=== PATIENT | female | born 1990 | race Caucasian/White ===

== ENCOUNTER 2017-07-29 04:53 | Emergency (ER) | payer MEDICAID ==
[2017-07-29 05:02] VITALS: O2SAT 96
--- NOTE | 2017-07-29 05:08 | EDPHY ---
H & P Stated Complaint: COUGH X 2 WKS, SOB TONIGHT HPI/ROS: HPI CHIEF COMPLAINT: Cough, shortness of breath HISTORY OF PRESENT ILLNESS: This patient is a 26-year-old female she has a history of lupus, Bechet's Disease, additionally migraine headache she presents emergency room with 2 weeks of cough initially nonproductive and rather nagging. She states tonight she started coughing worse with productive of sputum with white clear sputum. At time she thinks over the past 2 weeks she has had some blood in her sputum. Denies any fever. Does endorse pain when she coughs in her chest. No vomiting. Denies taking control. No history of PE or DVT. No history of cardiac disease. Came to the emergency room as her cough got worse this evening. 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 She states she was coughing rather throughout the 24 hr however got worse when she tried to lay down and take a rest tonight. Due to the worsening cough shortness of breath she decided come the emergency room. She denies any significant chest pain except when she coughs. Denies any abnormal leg swelling or leg pain or calf tenderness. Denies pleuritic pain. Past Medical History: Lupus, Migraines, Bechet's Disease Past Surgical History: Denies recent surgery Social History: [employer] student, denies drugs alcohol tobacco. Family History: Noncontributory ROS REVIEW OF SYSTEMS: A comprehensive 10 point review of systems is otherwise negative aside from elements mentioned in the history of present illness. Exam Constitutional appears well nontoxic triage nursing summary reviewed, vital signs reviewed, awake/alert. Eyes normal conjunctivae and sclera, EOMI, PERRLA. HENT normal inspection, atraumatic, moist mucus membranes, no epistaxis, neck supple/ no meningismus, no raccoon eyes. Respiratory bronchitic sounding cough on exam, decreased air movement bilaterally, slight wheezing bilaterally Cardiovascular rate normal, regular rhythm, no murmur, no edema, distal pulses normal. Gastrointestinal soft, non-tender, no rebound, no guarding, normal bowel sounds, no distension, no pulsatile mass. Genitourinary no CVA tenderness. Musculoskeletal no midline vertebral tenderness, full range of motion, no calf swelling, no tenderness of extremities, no meningismus, good pulses, neurovascularly intact. Skin pink, warm, & dry, no rash, skin atraumatic. Neurologic awake, alert and oriented x 3, AAOx3, moves all 4 extremities equally, motor intact, sensory intact, CN II-XII intact, normal cerebellar, normal vision, normal speech. Psychiatric normal mood/affect. Heme/Lymph/Immune no lymphadenopathy. Differential Diagnosis: Includes but is not limited to in a particular order bronchitis, pneumonia, reactive airway disease, viral syndrome, upper respiratory tract infection, pulmonary embolism, pneumothorax, CHF Medical Decision Making: Plan for this patient IV established with IV fluid bolus, IV Solu-Medrol for bronchitic sounding cough, wheezing, chest x-ray, DuoNeb breathing treatment, check basic blood work including D-dimer and re- evaluate. Re-evaluation: EKG interpretation by me on record in [employer] system. Impression time of EKG 5:22 a.m., sinus rhythm rate of 98 no acute ischemic change appreciated. No signs of cardiac arrhythmia. ED x-ray chest one view: Negative for acute cardiopulmonary disease. 0606: D-dimer is negative. 0635: Re-evaluation the patient is resting comfortably feels much better after 1st DuoNeb breathing treatment. She is requesting a 2nd DuoNeb breathing treatment. Chest x-ray does not show any significant abnormality specifically no focal pneumonia no pneumothorax. Blood work is reviewed negative D-dimer. Electrolytes appropriate. Good kidney function. Clinically this patient is having acute bronchitis. Vital signs have been reviewed she is stable. No hypoxia no fever. She is requesting 2nd DuoNeb breathing treatment Which I will provide for her. For home I will provide a albuterol inhaler, azithromycin, prednisone. Recommend she drink lots of fluids. Recommend return emergency room she develops worsening shortness of breath or pain. Source: Patient - Personal History LMP (Females 10-55): 8-14 Days Ago Current Tetanus/Diphtheria Vaccine: Yes Tetanus Vaccine Date: 2014 - Medical/Surgical History Hx Asthma: No Hx Chronic Respiratory Disease: No Hx Diabetes: No Hx Cardiac Disease: Yes Hx Renal Disease: No Hx Cirrhosis: No Hx Alcoholism: No Hx HIV/AIDS: No Hx Splenectomy or Spleen Trauma: No Other PMH: Lupus. Bradycardia. [employer] INFLAMATION, - Social History Smoking Status: Never smoked Constitutional: Initial Vital Signs Temperature (C) 36.7 C 07/29/17 04:57 Heart Rate 98 02/11/18 04:57 Respiratory Rate 20 07/29/17 04:57 Blood Pressure 120/78 07/29/17 04:57 O2 Sat (%) 96 07/29/17 04:57 O2 Delivery Mode Room Air Allergies/Adverse Reactions: metoclopramide HCl [From Reglan] Allergy (Verified 07/29/17 04:55) morphine Allergy (Verified 07/29/17 04:55) mor Allergy (Uncoded 07/02/15 16:37) Home Medications: Medication Instructions Recorded Plaquenil 200 mg (RX) 12/27/15 Wellbutrin Sr 12/27/15 AZITHROMYCIN [Z-PACK] 250 mg PO DAILY #6 tab 07/29/17 Albuterol [Proventil Inhaler HFA 1 - 2 puffs IH Q4H #1 mdi 07/29/17 (*)] Topamax 07/29/17 guaiFENesin [Guaifenesin ER] 600 mg PO BID #14 tab.er.12h 07/29/17 predniSONE 60 mg PO DAILY #15 tab 07/29/17 riTUXimab 07/29/17 Medical Decision Making - Data Points Laboratory Results: Laboratory Results 07/29/17 05:32 07/29/17 05:32 07/29/17 07/29/17 07/29/17 05:41 05:32 05:32 WBC RBC Hgb POC Hgb 13.6 gm/dL gm/dL (12.6-16.3) Hct POC Hct 40 % % (38-47) MCV MCH MCHC RDW Plt Count MPV Neut % (Auto) Lymph % (Auto) [place] % (Auto) Eos % (Auto) Baso % (Auto) Nucleat RBC Rel Count Absolute Neuts (auto) Absolute Lymphs (auto) Absolute Monos (auto) Absolute Eos (auto) Absolute Basos (auto) Absolute Nucleated RBC Immature Gran % Immature Gran # D-Dimer POC Sodium 141 mEq/L mEq/L (135-145) Sodium 140 mEq/L mEq/L (135-145) POC Potassium 3.7 mEq/L mEq/L (3.3-5.0) Potassium 3.9 mEq/L mEq/L (3.5-5.2) POC Chloride 108 mEq/L mEq/L (97-110) Chloride 105 mEq/L mEq/L (97-110) Carbon Dioxide 22 mEq/l mEq/l (22-31) Anion Gap 13 mEq/L mEq/L (8-16) POC BUN 8 mg/dL mg/dL (7-23) BUN 10 mg/dL mg/dL (7-23) Creatinine 0.8 mg/dL mg/dL (0.6-1.0) POC Creatinine 0.9 mg/dL mg/dL (0.6-1.0) Estimated GFR > 60 Glucose 92 mg/dL mg/dL (70-100) POC Glucose 93 mg/dL mg/dL (70-100) Calcium 9.9 mg/dL mg/dL (8.5-10.4) Beta HCG, Qual NEGATIVE 07/29/17 07/29/17 05:32 05:32 WBC 12.68 10^3/uL H 10^3/uL (3.80-9.50) RBC 4.82 10^6/uL 10^6/uL (4.18-5.33) Hgb 14.7 g/dL g/dL (12.6-16.3) POC Hgb Hct 41.5 % % (38.0-47.0) POC Hct MCV 86.1 fL fL (81.5-99.8) MCH 30.5 pg pg (27.9-34.1) MCHC 35.4 g/dL g/dL (32.4-36.7) RDW 13.4 % % (11.5-15.2) Plt Count 358 10^3/uL 10^3/uL (150-400) MPV 9.5 fL fL (8.7-11.7) Neut % (Auto) 69.2 % % (39.3-74.2) Lymph % (Auto) 18.1 % % (15.0-45.0) [place] % (Auto) 9.5 % % (4.5-13.0) Eos % (Auto) 2.2 % % (0.6-7.6) Baso % (Auto) 0.7 % % (0.3-1.7) Nucleat RBC Rel Count 0.0 % % (0.0-0.2) Absolute Neuts (auto) 8.78 10^3/uL H 10^3/uL (1.70-6.50) Absolute Lymphs (auto) 2.29 10^3/uL 10^3/uL (1.00-3.00) Absolute Monos (auto) 1.20 10^3/uL H 10^3/uL (0.30-0.80) Absolute Eos (auto) 0.28 10^3/uL 10^3/uL (0.03-0.40) Absolute Basos (auto) 0.09 10^3/uL 10^3/uL (0.02-0.10) Absolute Nucleated RBC 0.00 10^3/uL 10^3/uL (0-0.01) Immature Gran % 0.3 % % (0.0-1.1) Immature Gran # 0.04 10^3/uL 10^3/uL (0.00-0.10) D-Dimer 0.33 ug/mLFEU ug/mLFEU (0.00-0.50) POC Sodium Sodium POC Potassium Potassium POC Chloride Chloride Carbon Dioxide Anion Gap POC BUN BUN Creatinine POC Creatinine Estimated GFR Glucose POC Glucose Calcium Beta HCG, Qual Medications Given: Discontinued Medications Albuterol/Ipratropium (Duoneb) 3 ml IH EDNOW ONE Stop: 07/29/17 05:16 Last Admin: 07/29/17 05:33 Dose: 3 ml Sodium Chloride (Ns) 1,000 mls @ 0 mls/hr IV EDNOW ONE; Wide Open PRN Reason: Protocol Stop: 07/29/17 05:16 Last Admin: 07/29/17 05:32 Dose: 1,000 mls Methylprednisolone Sodium Succinate (Solu-Medrol) 125 mg IVP EDNOW ONE Stop: 07/29/17 05:21 Last Admin: 07/29/17 05:32 Dose: 125 mg Ondansetron HCl (Zofran) 4 mg IVP EDNOW ONE Stop: 07/29/17 05:49 Last Admin: 07/29/17 05:49 Dose: 4 mg Point of Care Test Results: 07/29/17 05:41 POC Sodium 141 POC Potassium 3.7 POC Chloride 108 POC BUN 8 POC Creatinine 0.9 POC Glucose 93 Departure - Departure Disposition: Home, Routine, Self-Care Clinical Impression: Acute bronchitis Qualifiers: Bronchitis organism: unspecified organism Qualified Code(s): J20.9 - Acute bronchitis, unspecified Condition: Good Instructions: Acute Bronchitis (ED), Wheezing (ED), How Your Lungs Work (ED) Additional Instructions: 1. Stay well-hydrated drink lots of fluids. 2. Return emergency room if you have worsening shortness of breath or pain in her chest. 3. Albuterol inhaler 2 puffs every 4 hr as needed for cough or wheezing. Referrals: NONE *PRIMARY CARE P,. [Primary Care Provider] - As per Instructions Prescriptions: Albuterol [Proventil Inhaler HFA (*)] 1 - 2 puffs IH Q4H #1 mdi AZITHROMYCIN [Z-PACK] 250 mg PO DAILY #6 tab guaiFENesin [Guaifenesin ER] 600 mg PO BID #14 tab.er.12h predniSONE 60 mg PO DAILY #15 tab
[2017-07-29] MEDS ORDERED: NS 1,000 ML IV ONE (05:15)
[2017-07-29] MEDS ORDERED: IPRATROPIUM/ALBUTEROL 3 ML DEYVIAL IH ONE ×2 (05:15→06:34)
[2017-07-29] MEDS ORDERED: methylPREDNISolone SOD SUCC 125 MG/2 ML VIAL IVP ONE (05:20)
--- NOTE | 2017-07-29 05:24 | CPEKG ---
Heart Rate: 98 RR Interval: 612 P-R Interval: 180 QRSD Interval: 68 QT Interval: 336 QTC Interval: 430 P [place]: 34 QRS [place]: 47 T Wave [place]: 12 EKG Severity - NORMAL ECG - EKG Impression: SINUS RHYTHM Electronically Signed By: Marco Dyer 29-Jul-2017 06:58:10
[2017-07-29] MEDS ORDERED: ONDANSETRON 4 MG/2 ML VIAL ONE (05:42)
[2017-07-29 05:47] LABS: PLATELET COUNT 358 10^3/uL (150-400)
[2017-07-29] MEDS ORDERED: ONDANSETRON 4 MG/2 ML VIAL IVP ONE (05:48)
[2017-07-29] MEDS ORDERED: IOPAMIDOL (ISOVUE 370) 100 ML BTL IV ONE (06:00)
[2017-07-29 07:26] VITALS: BP 122/85; PULSE 90; RESP 18; TEMP 98.6
== END 2017-07-29 07:24 | disposition home or self-care (01) ==
DX: J20.9 Acute bronchitis, unspecified (principal); E86.9 Volume depletion, unspecified
CPT/HCPCS: 82947-QW; 96374; J2405; J2930; Q9967